=== PATIENT | female | born 1940 | race Caucasian/White ===

== ENCOUNTER → 2017-01-08 | Outpatient (CLI) | payer OTHER, BC ==
[~2017-01-08] MED LIST: ACET-24 PO; ASPEC325 PO; ATEN50TA8 PO; ATV1 PO; DIPH-437 PO; IBUP-1459 PO; LEVO50TA6 PO; LEVO75TA5 PO; NAPR1TAB9 PO; NCYSR50 PO; RXC5 PO; SIMV20TA2 PO
--- NOTE | 2017-01-08 12:10 | MAMMOGRAPHY REPORT ---
BILATERAL DIGITAL SCREENING MAMMOGRAM WITH CAD: 01/08/2017 TECHNIQUE: Current study was also evaluated with a Computer Aided Detection (CAD) system. Bilateral CC and MLO views were obtained. COMPARISON: Comparison is made to exams dated: 01/07/2016 mammogram, 01/03/2015 mammogram, 01/02/2014 m ammogram, 12/30/2012 mammogram, 12/11/2011 mammogram, and 12/09/2010 mammogram - [facility] nter. BREAST COMPOSITION: There are scattered areas of fibroglandular density in both breasts. FINDINGS: No suspicious masses, calcifications, or areas of architectural distortion are noted in ei ther breast. There has been no significant interval change compared to prior exams. Bilateral benig n-appearing calcifications are not significantly changed, including a small cluster of benign-appeari ng calcifications in the right upper outer quadrant which is stable dating back to at least the 2014 exam. IMPRESSION: ACR BI-RADS CATEGORY 2: BENIGN There is no mammographic evidence of malignancy. A 1 year screening mammogram is recommended. The pa tient will receive written notification of the results. Approximately 10% of breast cancers are not detected with mammography. A negative mammographic report should not delay biopsy if a clinically suggestive mass is present. Rhona Choudhury M.D. ah/:01/08/2017 10:53:01 [employer] System Administrator: Mitzi SALAS(Jayson)(M), [facility] letter sent: Normal 1/2 BI-RADS Code: ACR BI-RADS Category 2: Benign
== END | disposition home or self-care (01) ==
LOC: C.MAMM 10:29
PROVIDERS: ATTEND Family Medicine
DX: Z12.31 Encounter for screening mammogram for malignant neoplasm of breast (principal)

== ENCOUNTER 2017-03-23 06:30 | Inpatient (IN) | payer OTHER, BC ==
[2017-03-04 11:05] VITALS: BMI 40.0
--- NOTE | 2017-03-04 11:44 | PAT Medication Instructions ---
Service Date Mar 04, 2017. Current Home Medication List Atenolol (Tenormin), 50 MG PO HS Diphenhydramine-Acetaminophen (Tylenol Pm), 2 TAB PO HS PRN for PRN Ibuprofen (Motrin), 400 MG PO Q6H PRN for Pain Levothyroxine Sodium (Levothyroxine Sodium), 1 TAB PO QAM Simvastatin (Zocor), 20 MG PO HS Medication Instructions For Your Scheduled Surgery -Hold the following medication per surgeon's instructions: Ibuprofen (Motrin), 400 MG PO Q6H PRN for Pain - Take the following medications the morning of surgery with a sip of water: Levothyroxine Sodium (Levothyroxine Sodium), 1 TAB PO QAM - Take the following medications as scheduled the night before surgery: Simvastatin (Zocor), 20 MG PO HS Atenolol (Tenormin), 50 MG PO HS Diphenhydramine-Acetaminophen (Tylenol Pm), 2 TAB PO HS PRN for PRN If you have any questions please call us at [phone] or [phone] or [phone]
--- NOTE | 2017-03-04 12:31 | DIAGNOSTIC IMAGING REPORT ---
CHEST 2 VIEWS ROUTINE HISTORY: 76 years-old Female preadmission exam. No reported chest complaints. COMPARISON: Chest radiograph 03/22/2015 TECHNIQUE: Frontal and lateral views of the chest FINDINGS: Cardiac silhouette is mildly enlarged. There is no pneumothorax, pleural effusion, focal airspace consolidation or overt pulmonary edema. Degenerative changes involve the shoulders and spine. Partially imaged posterior nik and screw fixation of the lumbar spine is noted. IMPRESSION: Mild cardiomegaly without acute cardiopulmonary process. The above report was generated using voice recognition software. It may contain grammatical, syntax or spelling errors. Electronically signed by: Emanuel Frias M.D. 03/04/2017 12:30 PM Dictated Date/Time: 03/04/2017 12:29 PM
[2017-03-04 12:38] LABS: BASO % 0.6 %; BASO ABS # 0.04 K/uL (0-0.2); COMPLETE YES; EOS % 1.8 %; HEMATOCRIT 44.9 % (37-47); IG% 0.1 %; LYMPH % 41.2 %; LYMPH ABS # 2.76 K/uL (1.2-3.4); MEAN CELL VOLUME 99.8 fL (80-100); MEAN CORPUSCULAR HEMOGLOBIN 32.9 pg (25-34); MEAN PLATELET VOLUME 10.7 fL (7.4-10.4); MONO % 8.4 %; NEUT % 47.9 %; PLATELET COUNT 195 K/uL (130-400)
[2017-03-04 12:49] LABS: PARTIAL THROMBOPLASTIN RATIO 1.1; PROTHROMBIN TIME (PATIENT) 10.7 SECONDS (9.0-12.0)
[2017-03-04 14:02] LABS: BLOOD UREA NITROGEN 17 mg/dl (7-18); CREATININE 0.98 mg/dl (0.60-1.20); GLUCOSE 85 mg/dl (70-99)
[2017-03-04 14:03] LABS: BUN/CREATININE RATIO 16.8 (10-20); C-REACTIVE PROTEIN < 0.29 mg/dl (0-0.29); CARBON DIOXIDE 24 mmol/L (21-32); CHLORIDE 109 mmol/L (98-107); POTASSIUM 4.5 mmol/L (3.5-5.1); SODIUM 139 mmol/L (136-145)
--- NOTE | 2017-03-18 12:54 | HISTORY & PHYSICAL EXAMINATION ---
DATE OF ADMISSION: 03/23/2017 CHIEF COMPLAINT: Right knee pain. HISTORY OF PRESENT ILLNESS: The patient is a 76-year-old female, now about 6 years out from a left knee replacement, who presents for surgical treatment of her right knee. She had a long history of right knee pain and discomfort that has gotten worse over the past several years. She gets very temporary relief from the injections. She has actually resorted to going up and down steps one step at a time. She does get intermittent acute pains, which make it difficult for her to ambulate at all. Pain is global. It is increased with weightbearing. She would like to have a right knee replaced. PAST MEDICAL HISTORY: 1. Hypertension. 2. Elevated cholesterol. 3. Hypothyroidism. 4. Osteoarthritis. 5. Obesity with a BMI of 41. PAST SURGICAL HISTORY: Surgeries include: 1. Left knee replacement done on 05/19/2010. 2. Spinal stenosis surgery. 3. Tonsillectomy. 4. Hysterectomy. 5. Herniorrhaphy. 6. Carpal tunnel release. ALLERGIES: None. CURRENT MEDICINES: Include: 1. Atenolol 50 mg once a day. 2. Levothyroxine 75 mcg a day. 3. Zocor 20 mg. 4. Tylenol. SOCIAL HISTORY: A 76-year-old female patient from [place]. Does not smoke. FAMILY HISTORY: Noncontributory. REVIEW OF SYSTEMS: Negative for diabetes, neurologic problems, vascular bleed, or bleeding disorders. No chest pain or shortness of breath. No history of DVT or PE. PHYSICAL EXAMINATION: GENERAL: Reveals a healthy, pleasant middle-aged female. Looks to be in pretty good health. HEENT: Benign. NECK: Supple. No lymphadenopathy. LUNGS: Clear to auscultation. HEART: Regular rate and rhythm. ABDOMEN: Soft, nontender, and nondistended. EXTREMITIES: Grossly neurovascularly intact except as follows: Examination of the right knee reveals the patient walks with a slight bit of a limp. She has varus alignment to her knee. She does have a little bit of varus thrust with weightbearing. Range of motion is 5 degrees short of full extension to 110 degrees of flexion. Pretty stiff with flexion. No pain with hip motion. X-RAYS: X-rays of the right knee revealed advanced right knee DJD. She has complete loss of her medial joint space. She has subchondral sclerosis. She has got osteophytes particularly of the medial femoral condyle and medial tibial plateau. She has got some posterior osteophytes as well. ASSESSMENT: A 76-year-old female with 6 years out from left knee replacement with advanced right knee degenerative joint disease. She would like to have her right knee replaced. PLAN: We are going to take her to the operating room and do a right total knee replacement. The risks and benefits of this procedure were explained to the patient, including but not limited to DVT, PE, , infection, neurological injury, vascular injury, bleeding problem, pain, limited range of motion, stiffness, failure to relieve her symptoms, incomplete relief of symptoms, need for further surgery in the future, fracture, leg length inequality, nerve palsy, persistent pain, need for blood transfusion, etc. The patient understands and desires to proceed. Informed consent was obtained. We did talk to her about taking her atenolol the evening before surgery. She stopped all of her NSAIDs. She is planning to be discharged to home, using [facility].
[2017-03-23] VITALS (10 sets, daily range): BP systolic 122–177; BP diastolic 58–87; PULSE 50–60; TEMP 36.4–36.7; O2SAT 95–100; Ht 160 cm; Wt 104.6 kg
[~2017-03-23] VITALS: Ht 160 cm; Wt 104.6 kg
[~2017-03-23 06:30] MED LIST changes: -ACET-24 PO; +ACETAMINOPHEN 500 MG TAB PO SCH; -ASPEC325 PO; -ATV1 PO; +BUPIVACAINE 0.5 % 5 MG/1 ML PF 10ML VIAL ONE; +BUPIVACAINE LIPOSOME 266 MG, BUPIVACAINE/EPINEPHRINE INJ 50 ML, SODIUM CHLORIDE 0.9% PF... INFIL SCH; +CEFAZOLIN 2000 MG/60 ML D5W 60 ML IV SCH; +FAMOTIDINE 20 MG TAB PO SCH; +GABAPENTIN 300 MG CAP PO SCH; +LACTATED RINGER'S 1000ML 500 ML IV ONE; +LACTATED RINGER'S 1000ML IV SCH; -LEVO50TA6 PO; +METOCLOPRAMIDE HCL 10 MG TAB PO SCH; -NAPR1TAB9 PO; -NCYSR50 PO; +ROPIVACAINE 0.5% 5 MG/ML 30 ML VIAL ONE; -RXC5 PO; +SCOPOLAMINE 1.5 MG TDSY TD SCH; +TRANEXAMIC ACID INJ 1,000 MG in SODIUM CHLORIDE 0.9% 100ML 100 ML IV SCH
--- NOTE | 2017-03-23 06:49 | History & Physical Bridge Note ---
H&P Re-Evaluation Bridge Note: I have examined the patient, reviewed the History & Physical and in the interval since the performance of the History & Physical I have noted the following changes of clinical significance: No changes noted
[2017-03-23] MEDS ORDERED: NAPR1TAB9 PO (07:06)
[2017-03-23] MEDS ORDERED: FENTANYL CITRATE INJ 50 MCG/1 ML 2 ML VIAL ONE (07:50)
[2017-03-23] MEDS ORDERED: MIDAZOLAM HCL 1 MG/ML 2ML VIAL ONE ×3 (07:50→09:11)
[2017-03-23] MEDS ORDERED: BUPIVACAINE/EPINEPHRINE 0.25% 1:200,000 30 ML VIAL ONE (08:37)
[2017-03-23] MEDS ORDERED: SODIUM CHLORIDE 0.9% PF 50 ML VIAL ONE (08:37)
[2017-03-23] MEDS ORDERED: BUPIVACAINE LIPOSOME 1/3% 266 MG/20 ML VIAL INFIL ONE (08:37)
[2017-03-23] MEDS ORDERED: BACITRACIN 50000 UNIT VIAL ONE (08:37)
[2017-03-23] MEDS ORDERED: NALOXONE HCL INJ 1 MG in SODIUM CHLORIDE 0.9% 1000ML 1,000 ML IV PRN (09:24)
[2017-03-23] MEDS ORDERED: NALOXONE HCL INJ 0.08 MG in SYRINGE 1.8 ML IV PRN (09:24)
[2017-03-23] MEDS ORDERED: SODIUM CHLORIDE 0.9% 1000ML 1,000 ML IV PRN (09:24)
[2017-03-23] MEDS ORDERED: LACTATED RINGER'S 1000ML 500 ML IV PRN (09:24)
[2017-03-23] MEDS ORDERED: NO NARCOTICS OR SEDATIVES SCH (09:30)
[2017-03-23] MEDS ORDERED: NALOXONE HCL 0.4 MG/1 ML VIAL/CARP IV PRN (09:30)
[2017-03-23] MEDS ORDERED: DC INTRASPINAL MORPHINE SCH (09:30)
[2017-03-23] MEDS ORDERED: EpHEDrine SULFATE INJ 50 MG/ML AMP IV PRN (09:30)
[2017-03-23] MEDS ORDERED: NALBUPHINE HCL INJ 10 MG/ML AMP IV PRN (09:30)
[2017-03-23] MEDS ORDERED: DiphenhydrAMINE HCL 50 MG/ML VIAL IV PRN (09:30)
[2017-03-23] MEDS ORDERED: MoRPHine SULFATE PF 1 MG/ML 10 ML AMP/VIAL EPI PRN (09:30)
[2017-03-23] MEDS ORDERED: PROPOFOL IV EMULSION 10 MG/ML 20 ML VIAL IV ONE (09:37)
[2017-03-23] MEDS ORDERED: ONDANSETRON INJ 2 MG/ML 2 ML VIAL ONE (09:37)
[2017-03-23] MEDS ORDERED: DEXAMETHASONE SOD INJ 4 MG/ML VIAL ONE (09:38)
--- NOTE | 2017-03-23 10:39 | [facility] Post Operative Brief Note ---
Immediate Operative Summary Operative Date Mar 23, 2017. Pre-Operative Diagnosis Right Knee Advanced Degenerative Joint Disease Post-Operative Diagnosis Right Knee Advanced Degenerative Joint Disease Procedure(s) Performed Right Total Knee Arthroplasty Surgeon Dr. Mendoza Director Of Undergraduate Admissions Surgeon(s) SHELDON Thibodeaux Estimated Blood Loss 50 ml Findings Right Knee DJD Fluids (cc crystalloids) 1700 cc Specimens A. Right Knee Bone and Tissue Drains None Anesthesia Spinal Complication(s) None Disposition Recovery Room / PACU
[2017-03-23] MEDS ORDERED: ONDANSETRON INJ 2 MG/ML 2 ML VIAL IV PRN (10:45)
[2017-03-23] MEDS ORDERED: ALUMINUM/MAGNESIUM/SIMETH (MAALOX MAX) 30 ML UDC PO PRN (10:45)
[2017-03-23] MEDS ORDERED: HYDROmorphone HCL 2 MG TAB PO PRN (10:45)
[2017-03-23] MEDS ORDERED: MAGNESIUM HYDROXIDE SUSP 30 ML UDC PO PRN (10:45)
[2017-03-23] MEDS ORDERED: SILVER SULFADIAZINE 1% CR 50 GM JAR EXT PRN (10:45)
[2017-03-23] MEDS ORDERED: HYDROmorphone INJ 0.5 MG/0.5 ML SYR IV PRN (10:45)
[2017-03-23] MEDS ORDERED: ZOLPIDEM TARTRATE 5 MG TAB PO PRN (10:45)
[2017-03-23] MEDS ORDERED: METOCLOPRAMIDE HCL INJ 5 MG/ML 2 ML VIAL IV PRN (10:45)
[2017-03-23] MEDS ORDERED: BISACODYL 10 MG SUPP PR PRN (10:45)
--- NOTE | 2017-03-23 11:09 | DIAGNOSTIC IMAGING REPORT ---
RIGHT KNEE 1 OR 2 VIEWS ROUTINE CLINICAL HISTORY: Postop study COMPARISON: Outside radiograph dated 02/19/2017 DISCUSSION: There are postsurgical changes of a total right knee arthroplasty and patellar resurfacing. Overlying skin glen are evident. There is air within the soft tissues consistent with recent surgery. IMPRESSION: Postsurgical changes of a total right knee arthroplasty. Electronically signed by: Jarett Martinez M.D. 03/23/2017 11:08 AM Dictated Date/Time: 03/23/2017 11:07 AM
--- NOTE | 2017-03-23 11:09 | OPERATIVE REPORT ---
DATE OF OPERATION: 03/23/2017 PREOPERATIVE DIAGNOSIS: Right knee degenerative joint disease. POSTOPERATIVE DIAGNOSIS: Same. PROCEDURE PERFORMED: Right cemented posterior stabilized total knee arthroplasty. SURGEON: Dr. Ramos Mendoza. [employer] SUPERVISOR: Andrews Ruiz PA-C. COMPLICATIONS: None. ESTIMATED BLOOD LOSS: 50 mL. FLUID REPLACEMENT: 1700 mL crystalloid fluid replacement. ANESTHESIA: Spinal with adductor canal block. DRAINS: None. SPECIMENS: Right knee sent for pathology. TOURNIQUET TIME: 53 minutes at 300 mmHg. OPERATIVE INDICATIONS: The patient is a 76-year-old female now about 7 years out from a left knee replacement. Over the past several years she developed increased pain and discomfort in the right knee. She has been unresponsive to conservative care. She elected to proceed with right total knee arthroplasty. OPERATIVE FINDINGS: Operative findings revealed advanced right knee DJD. She did have extensive grade 4 changes in the medial femoral condyle and medial tibial plateau. Less severe grade 3 changes in the other 2 compartments. She had a varus deformity to her knee. Moderate size effusion. OPERATIVE IMPLANTS: Operative implants consisted of: 1. A Biomet Vanguard size 62.5 right posterior stabilized femoral component. 2. Biomet size 71 tibial tray. 3. A 10 mm posterior stabilized polyethylene insert. 4. A 31 x 8 all poly patella. OPERATIVE PROCEDURE: The patient taken to the operating room, identified and placed on the operating table in supine position. All contact areas were appropriately padded. IV antibiotics were provided by anesthesia team. A spinal anesthetic and adductor canal block had been provided in the holding area. Gaming catheter was placed in sterile fashion. A right thigh tourniquet was then placed and the right lower extremity was then prepped and draped in the usual sterile fashion. The right leg was elevated and exsanguinated with Esmarch and tourniquet was placed at 300 mmHg. An anterior approach to the right knee was then performed through a longitudinal incision centered over the patella. I did excise a very small benign skin lesion at her request. Sharp dissection was carried down through the subcutaneous tissues down to the level of the extensor mechanism. A medial parapatellar arthrotomy incision was made. Some subperiosteal dissection was carried out medially. The fat pad was resected from beneath the patellar tendon. The lateral patellofemoral ligament was released. The patella was everted, and the knee was flexed. The osteophytes were taken off the distal femur. The ACL and PCL were then released from the distal femur and the tibia subluxated anteriorly. The external tibial alignment jig was then placed in the anterior face of the tibia and adjusted 14 mm medially. Proximal tibial cut was made to remove about 2 mm of bone from the most deficient aspect of the medial tibial plateau. Tibia was sized to a size 71. Attention was then drawn to the femur. The distal femur was entered with a sharp drill. Intramedullary canal was suctioned. A right 5 degree valgus cutting guide was placed. Distal femoral cutting block was pinned in place. Distal femoral cut was made to take an additional 3 mm of bone off the distal femur. The femur was then sized to a size 62.5. We did downsize this slightly. The AP cutting block was pinned parallel to the epicondylar axis, which was 4 degrees of external rotation. The anterior cut, anterior chamfer, posterior cut, posterior chamfer cuts were made. Box cutting guide was placed and adjusted slightly lateral and the box cut was made. The knee was flexed. The remnants of the medial and lateral meniscus were excised. The osteophytes were taken off the posterior aspect of the femur. Trial femoral component was placed. Tibial tray was pinned in maximum external rotation and the drill and stem punch were used to create defect in proximal tibia for the tibial tray. The knee was then trialed and the 10 mm insert fit most appropriately. Attention was then drawn to the patella. The patella was cleaned of all soft tissues. Patella thickness measured 22 mm in thickness and was cut down to 14. It was sized to a size 31 patella. Lug holes were drilled for the 31 patella. Lateral osteophyte was removed. Patella button was placed. Knee was taken through range of motion, patella tracked nicely with no thumbs test. Attention was then drawn toward placement of the permanent components. All trial components were removed. A bone plug was placed in the distal femur to limit blood loss. A double batch of Palacos G cement was mixed. A right size 62.5 posterior stabilized femoral component, size 71 tibial tray, a 10 mm posterior stabilized polyethylene insert, and a 31 x 8 all poly patella were then cemented in place. Knee was brought out into full extension until cement hardened. A final cement check was then performed. The pericapsular tissues were injected with a total of 100 mL of a combination of 20 mL of Exparel, 30 mL of normal saline, 50 mL of 0.25% Marcaine with epinephrine. The patient did receive 1 gram of tranexamic acid. The tourniquet was then let down for a tourniquet time of 53 minutes. Hemostasis was assured with use of electrocautery. The wound was once again irrigated. The extensor mechanism was then closed with a combination of #1 PDS suture and #1 Vicryl suture in a [id number] fashion. Extensor mechanism was checked and found to be intact. Subcutaneous tissues were then closed with 2-0 Dexon suture in a buried interrupted fashion. Skin was closed skin glen. Leg was then cleaned and dried and a sterile dressing of Xeroform, 4 x 4, sterile cast padding and Keshav bandage were applied. The patient then transferred to the recovery room in stable condition. The patient tolerated the procedure with no complications. All needle and sponge counts were correct at the end of the operation. I attest to the content of the Intraoperative Record and any orders documented therein. Any exception s are noted below.
--- NOTE | 2017-03-23 11:24 | Anesthesiology Progress Note ---
Anesthesia Post Op Note Date & Time Mar 23, 2017 at 11:24 Vital Signs Pain Intensity: 0 Vital Signs Past 12 Hours Date Time Temp Pulse Resp B/P (MAP) Pulse Ox O2 Delivery O2 Flow Rate FiO2 03/23/17 11:20 36.4 54 16 110/53 98 Nasal Cannula 2 03/23/17 11:10 53 16 118/56 96 Oxymask 2 03/23/17 11:00 56 16 121/58 99 Oxymask 3 03/23/17 10:50 55 16 115/54 98 Oxymask 5 03/23/17 10:44 36.4 59 12 107/47 98 Oxymask 10 03/23/17 07:20 36.6 53 18 177/80 95 Room Air Notes Mental Status: alert / awake / arousable, participated in evaluation Pt Amnestic to Procedure: Yes Nausea / Vomiting: adequately controlled Pain: adequately controlled Airway Patency, RR, SpO2: stable & adequate BP & HR: stable & adequate Hydration State: stable & adequate Anesthetic Complications: no major complications apparent
[2017-03-23] MEDS: FERROUS GLUCONATE 324 MG TAB PO SCH ×2 (13:23→18:19)
[2017-03-23] MEDS: D5W AND 1/2NSS + 20MEQ KCL 1,000 ML IV SCH ×2 (13:23→21:00)
[2017-03-23] MEDS: ACETAMINOPHEN 500 MG TAB PO SCH ×2 (13:24→21:45)
--- NOTE | 2017-03-23 15:29 | PROGRESS NOTE ---
DATE: 03/23/2017 SUBJECTIVE: 76-year-old female postop from a right knee replacement. She is doing well. Not having any pain yet. No chest pain or shortness of breath. Not feeling dizzy or lightheaded. OBJECTIVE: VITAL SIGNS: Temperature 36.5. Vital signs stable. PHYSICAL EXAMINATION: GENERAL: Reveals a healthy pleasant elderly female. She is sitting up in bed and talking to her . She looks comfortable. LUNGS: Clear to auscultation. HEART: Has a regular rate and rhythm. ABDOMEN: Soft, nontender, nondistended. EXTREMITIES: Grossly neurologically intact except as follows: Examination of the right leg reveals the leg to be well aligned. Dressing is clean, dry and intact. She can dorsiflex and plantarflex her foot appropriately. She is neurologically intact. X-RAYS: X-rays of the right knee from recovery room were reviewed. It shows a right cemented posterior stabilized total knee arthroplasty. The components look to be in good position. No signs of problems. ASSESSMENT: 76-year-old female postop from a right knee replacement, doing well. Her pain is controlled. She is neurologically intact. PLAN: 1. DVT prophylaxis including thigh-high TEDs, SCDs, and aspirin twice a day. 2. PT/OT. Weight bear as tolerated. Right total knee protocol. 3. Pain control, doing well with current pain regimen. 4. IV antibiotics x24 hours. 5. Disposition: Plan to discharge to home with some home health once adequately recovered.
[2017-03-23] MEDS: CHECK SCOPOLAMINE PATCH PLACEMENT SCH ×2 (16:16→23:12)
[2017-03-23] MEDS: KETOROLAC TROMETHAMINE 15 MG/ML VIAL IV. SCH ×2 (16:17→21:45)
[2017-03-23] MEDS: CEFAZOLIN IV 2,000 MG in DEXTROSE 5% 50ML 50 ML IV SCH (16:57)
[2017-03-23] MEDS ORDERED: NURSING VERBAL MED ORDER ONE (17:15)
[2017-03-23] MEDS ORDERED: TRANEXAMIC ACID INJ 1,000 MG in SODIUM CHLORIDE 0.9% 100ML 100 ML IV ONE (18:00)
[2017-03-23] MEDS: DOCUSATE SODIUM 100 MG CAP PO SCH (21:00)
[2017-03-23] MEDS: SIMVASTATIN 20 MG TAB PO SCH (21:00)
[2017-03-23] MEDS: TAPENTADOL ER 50 MG TABCR PO SCH (21:00)
[2017-03-23] MEDS: SENNA 8.6 MG TAB PO SCH (21:01)
[2017-03-23] MEDS: ASPIRIN 325 MG ECTAB PO SCH (21:01)
[2017-03-23] MEDS: OXYCODONE HCL IR 5 MG TAB (IMMEDIATE RELEASE) PO PRN (23:16)
[2017-03-24] VITALS (8 sets, daily range): BP systolic 129–176; BP diastolic 64–85; PULSE 50–63; TEMP 36.6–37; O2SAT 93–96
[2017-03-24] MEDS: CEFAZOLIN IV 2,000 MG in DEXTROSE 5% 50ML 50 ML IV SCH (01:40)
[2017-03-24] MEDS: D5W AND 1/2NSS + 20MEQ KCL 1,000 ML IV SCH (04:30)
[2017-03-24] MEDS: KETOROLAC TROMETHAMINE 15 MG/ML VIAL IV. SCH ×4 (04:30→22:01)
[2017-03-24] MEDS: ACETAMINOPHEN 500 MG TAB PO SCH ×3 (05:39→22:00)
[2017-03-24] MEDS: LEVOTHYROXINE 75 MCG TAB PO SCH (05:39)
[2017-03-24 05:55] LABS: HEMATOCRIT 37.8 % (37-47); MEAN CELL VOLUME 100.8 fL (80-100); MEAN CORPUSCULAR HEMOGLOBIN 32.3 pg (25-34); MEAN PLATELET VOLUME 10.8 fL (7.4-10.4); PLATELET COUNT 168 K/uL (130-400); RED BLOOD COUNT 3.75 M/uL (4.2-5.4); WHITE BLOOD COUNT 10.13 K/uL (4.8-10.8)
[2017-03-24 06:26] LABS: BUN/CREATININE RATIO 14.4 (10-20); CALCIUM 7.9 mg/dl (8.5-10.1); CREATININE 1.1 mg/dl (0.60-1.20); POTASSIUM 4.6 mmol/L (3.5-5.1)
[2017-03-24] MEDS: CHECK SCOPOLAMINE PATCH PLACEMENT SCH ×3 (07:22→23:25)
[2017-03-24] MEDS: TAPENTADOL ER 50 MG TABCR PO SCH ×2 (08:43→22:00)
[2017-03-24] MEDS: DOCUSATE SODIUM 100 MG CAP PO SCH ×2 (08:43→22:00)
[2017-03-24] MEDS: MULTIVITAMIN TAB PO SCH (08:43)
[2017-03-24] MEDS: PANTOprazole SOD 40 MG TAB PO SCH (08:43)
[2017-03-24] MEDS: ASPIRIN 325 MG ECTAB PO SCH ×2 (08:43→22:00)
[2017-03-24] MEDS: FERROUS GLUCONATE 324 MG TAB PO SCH ×3 (08:43→18:06)
[2017-03-24] MEDS ORDERED: RXC5 PO (09:38)
[2017-03-24] MEDS ORDERED: NCYSR50 PO (09:38)
[2017-03-24] MEDS ORDERED: ACET-24 PO (09:38)
[2017-03-24] MEDS ORDERED: ASPEC325 PO (09:38)
--- NOTE | 2017-03-24 09:40 | Discharge Instructions ---
Discharge Instructions Date of Service Mar 24, 2017. Admission Reason for Admission: Right Knee Osteoarthritis Discharge Discharge Diagnosis / Problem: Right Knee REplacement Discharge Goals Goal(s): Decrease discomfort, Improve function, Increase independence, Improve disease control, Therapeutic intervention Activity Recommendations Activity Level: Assistance Required Therapies: Physical Therapy, Occupational Therapy Weightbearing Status: Right weightbearing . Additional Information Patient informed of condition: Yes Advance Directives: Yes DNR: No Level of Care: Acute Rehab Communicable Disease: No Prognosis: Improving Current Hospital Diet Patient's current hospital diet: Regular Diet Discharge Diet Recommended Diet: Regular Diet Procedures Procedures Performed: Right Total Knee Arthroplasty Pending Studies Studies pending at discharge: no Medical Emergencies . Who to Call and When: Medical Emergencies: If at any time you feel your situation is an emergency, please call 911 immediately. . Non-Emergent Contact Non-Emergency issues call your: Surgeon . . "Provider Documentation" section prepared by Ramos Mendoza. . Core Measure Problem Core Measures: None
--- NOTE | 2017-03-24 09:46 | PROGRESS NOTE ---
DATE: 03/24/2017 SUBJECTIVE: 76-year-old female postop day 1 from right knee replacement, doing pretty well. She describes just mostly soreness in the knee. No chest pain or shortness of breath. Not feeling dizzy or lightheaded. OBJECTIVE: VITAL SIGNS: Temperature 36.7. Vital signs stable. Mild hypertension. PHYSICAL EXAMINATION: GENERAL: Reveals a pleasant elderly female. She is sitting up at her bedside and looks pretty comfortable. LUNGS: Clear to auscultation. HEART: Regular rate and rhythm. ABDOMEN: Soft, nontender, nondistended. EXTREMITIES: Grossly neurovascularly intact except as follows. Examination of the right lower extremity reveals the dressing to be clean, dry and intact. She can dorsiflex and plantarflex her foot appropriately. She is neurologically intact. LABORATORY DATA: Hemoglobin at 12.1, hematocrit 37.8. Electrolytes are stable. ASSESSMENT: 76-year-old female postop day 1 from a right knee replacement. Pain has been pretty well controlled. She is neurologically intact. PLAN: 1. DVT prophylaxis including thigh-high TEDs, SCDs, and aspirin twice a day. 2. PT/OT. Weightbearing as tolerated. Right total knee protocol. 3. Pain control, doing well with current pain regimen. 4. Disposition: She is hoping to be discharged to [facility] for a brief rehab stay. Will get bilingual social worker working on that today.
--- NOTE | 2017-03-24 10:12 | Anesthesiology Progress Note ---
Anesthesia Post Op Note Date & Time Mar 24, 2017 at 10:11 Vital Signs Pain Intensity: 5.0 Vital Signs Past 12 Hours Date Time Temp Pulse Resp B/P (MAP) Pulse Ox O2 Delivery O2 Flow Rate FiO2 03/24/17 07:15 Room Air 03/24/17 07:10 36.7 50 16 153/77 (102) 96 Room Air 03/24/17 03:24 36.6 56 18 129/64 (85) 95 Room Air 03/23/17 23:20 Room Air 03/23/17 23:18 151/58 (89) 03/23/17 22:55 36.4 54 16 165/78 (107) 95 Room Air Notes Mental Status: alert / awake / arousable, participated in evaluation Pt Amnestic to Procedure: Yes Nausea / Vomiting: adequately controlled Pain: adequately controlled Airway Patency, RR, SpO2: stable & adequate BP & HR: stable & adequate Hydration State: stable & adequate Neuraxial Anesthesia: was administered, sensory block resolved Anesthetic Complications: no major complications apparent
[2017-03-24] MEDS: OXYCODONE HCL IR 5 MG TAB (IMMEDIATE RELEASE) PO PRN ×2 (11:00→15:59)
--- NOTE | 2017-03-24 17:45 | Discharge Instructions ---
Discharge Instructions Date of Service Mar 24, 2017. Admission Reason for Admission: Right Knee Osteoarthritis Discharge Discharge Diagnosis / Problem: Right Knee Replacement Discharge Goals Goal(s): Decrease discomfort, Improve function, Increase independence, Improve disease control, Therapeutic intervention Activity Recommendations Activity Limitations: per Instructions/Follow-up section Weightbearing Status: Right weightbearing . Instructions / Follow-Up Instructions / Follow-Up ACTIVITY RECOMMENDATIONS: Physical Therapy: * You will go to physical therapy three times each week for four to six weeks after your surgery in order to regain your knee range of motion and to retrain your knee to work properly. * It is just as important to make sure you are getting your knee perfectly straight as it is to regain your knee bend. * Taking a pain pill an hour before therapy can help you have a more productive and comfortable therapy session. Home Exercise: * You were shown a series of exercises (heel props, heel slides, etc.) in the hospital. Do these exercises three to four times each day including the exercises you were shown in physical therapy. Walking: * Get up and walk several times each day. For the first four weeks, try not to stand or walk for more than one hour at a time. If you do stand or walk for more than one hour, you will not hurt anything, but your knee and leg will likely swell. * As you feel comfortable, you may change from the walker or crutches to a cane and then to independent walking. MEDICATIONS: New Medicine: * You will likely be taking one or more of these medications: 1. Oxycodone - A quick and shorter-acting pain medication. Take one to two tablets every four to six hours to lessen your pain. 2. Aspirin - Thins your blood to lessen the chance of forming a blood clot. * The most common side effects of pain medicine and iron are nausea and constipation. If nausea or constipation is too much of a problem or if you have any questions about your new medicines or doses, call [facility] at . We will try to help you manage these issues. VERY IMPORTANT TO READ AND REVIEW" Pain: * The immediate post-operative period after knee replacement surgery is often quite painful. * You are given a prescription for pain medicine. You should take it, as directed, when you need it, especially before physical therapy and before going to bed. Pain that interferes with sleep is very common and can last several months. * You will likely need pain medicine for the first four to six weeks. It will not stop all of the pain. The pain will lessen and as you feel better, you may change to milder pain medicine such as Tylenol. * The most common side effects of pain medicine are nausea and constipation, so don't take more than you need. SPECIAL CARE INSTRUCTIONS: TEDs/Elastic Stockings: * The white elastic stockings help limit swelling and prevent blood clots from forming in your legs. The more you wear them, the more they work. * Wear them for six weeks after knee replacement surgery and four weeks after partial knee replacement. Prevention of Infection: * Take antibiotics one hour before any dental cleaning, dental work, urological procedure, gastrointestinal procedure or any invasive surgery in order to prevent your new joint from getting infected. * You may get the antibiotics from the doctor performing the procedure or you may call our office at before and we will call in a prescription to the pharmacy of your choice. Things to Watch For: * Drainage from the incision site that occurs more than one week after your surgery. * Severely increased knee/leg pain or swelling. * Increased redness at the incision site. * Fever above 102 degrees Fahrenheit. * Unusual chest pain or shortness of breath. * Unusual pain or burning with urination. Call [facility] at with any of the above problems or if you have any questions about your medicines or recovery. FOLLOW UP VISIT: Make an appointment to see your doctor for approximately two weeks after surgery for a progress check and staple removal by calling the office at . Current Hospital Diet Patient's current hospital diet: Regular Diet Discharge Diet Recommended Diet: Regular Diet Procedures Procedures Performed: Right Total Knee Arthroplasty Pending Studies Studies pending at discharge: no Medical Emergencies . Who to Call and When: Medical Emergencies: If at any time you feel your situation is an emergency, please call [phone] immediately. . Non-Emergent Contact Non-Emergency issues call your: Surgeon . "Provider Documentation" section prepared by Ramos Mendoza. . VTE Core Measure Inpt VTE Proph given/why not?: Other Anticoagulation, T.E.D. Stockings, SCD's
[2017-03-24] MEDS: SIMVASTATIN 20 MG TAB PO SCH (22:00)
[2017-03-24] MEDS: SENNA 8.6 MG TAB PO SCH (22:00)
[2017-03-25] MEDS: KETOROLAC TROMETHAMINE 15 MG/ML VIAL IV. SCH ×2 (04:04→10:04)
[2017-03-25] MEDS: ACETAMINOPHEN 500 MG TAB PO SCH ×3 (05:57→21:17)
[2017-03-25] MEDS: LEVOTHYROXINE 75 MCG TAB PO SCH ×2 (05:57→06:43)
--- NOTE | 2017-03-25 07:42 | PROGRESS NOTE ---
DATE: 03/25/2017 SUBJECTIVE: 76-year-old female postop day 2 from a right knee replacement. She is doing pretty well. Denies any chest pain or shortness of breath. Moderate knee pain. Not feeling dizzy or lightheaded. OBJECTIVE: VITAL SIGNS: Temperature 37.0. Vital signs stable. PHYSICAL EXAMINATION: GENERAL: Reveals pleasant elderly female. She is lying in bed, looks pretty comfortable. She is awake, alert and oriented. EXTREMITIES: Examination of the right leg reveals a little bit of bloody drainage on the dressing. Her calf is soft and supple. She can dorsiflex and plantarflex her foot appropriately. She is neurologically intact. ASSESSMENT: 76-year-old female postop day 2 from right knee replacement, doing pretty well. Pain is reasonably well controlled. She is really interested in looking into rehab if possible as her 's fairly elderly and may have difficulty assisting in her care. PLAN: 1. DVT prophylaxis including thigh-high TEDs, SCDs, and aspirin twice a day. 2. PT/OT. Weightbearing as tolerated. Right total knee protocol. 3. Pain control, doing pretty well with current pain regimen. 4. Disposition: Plan to discharge hopefully to [facility] for a brief rehab stay; if not, home with home health.
[2017-03-25 07:49] VITALS: BP 138/69; PULSE 52; TEMP 36.9; O2SAT 94
[2017-03-25] MEDS: DOCUSATE SODIUM 100 MG CAP PO SCH ×2 (08:47→21:17)
[2017-03-25] MEDS: MULTIVITAMIN TAB PO SCH (08:47)
[2017-03-25] MEDS: ASPIRIN 325 MG ECTAB PO SCH ×2 (08:47→21:18)
[2017-03-25] MEDS: PANTOprazole SOD 40 MG TAB PO SCH (08:47)
[2017-03-25] MEDS: FERROUS GLUCONATE 324 MG TAB PO SCH ×3 (08:48→18:26)
[2017-03-25] MEDS: TAPENTADOL ER 50 MG TABCR PO SCH ×2 (08:51→21:18)
[2017-03-25] MEDS: OXYCODONE HCL IR 5 MG TAB (IMMEDIATE RELEASE) PO PRN (08:52)
[2017-03-25 16:00] VITALS: BP 107/67; PULSE 56; TEMP 36.9; O2SAT 95
[2017-03-25] MEDS: SENNA 8.6 MG TAB PO SCH (21:17)
[2017-03-25] MEDS: SIMVASTATIN 20 MG TAB PO SCH (21:18)
[2017-03-25 21:21] VITALS: BP 155/81; PULSE 60
[2017-03-25 23:04] VITALS: BP 153/83; PULSE 56; TEMP 36.9; O2SAT 95
[2017-03-26] MEDS: OXYCODONE HCL IR 5 MG TAB (IMMEDIATE RELEASE) PO PRN ×3 (05:09→13:31)
[2017-03-26] MEDS: LEVOTHYROXINE 75 MCG TAB PO SCH (05:41)
[2017-03-26] MEDS: ACETAMINOPHEN 500 MG TAB PO SCH ×2 (05:41→13:27)
[2017-03-26 08:32] VITALS: BP 132/72; PULSE 49; TEMP 36.9; O2SAT 97
[2017-03-26] MEDS: FERROUS GLUCONATE 324 MG TAB PO SCH ×2 (09:20→13:27)
[2017-03-26] MEDS: PANTOprazole SOD 40 MG TAB PO SCH (09:21)
[2017-03-26] MEDS: MULTIVITAMIN TAB PO SCH (09:21)
[2017-03-26] MEDS: DOCUSATE SODIUM 100 MG CAP PO SCH (09:21)
[2017-03-26] MEDS: ASPIRIN 325 MG ECTAB PO SCH (09:21)
[2017-03-26] MEDS: TAPENTADOL ER 50 MG TABCR PO SCH (09:28)
--- NOTE | 2017-03-26 13:43 | PROGRESS NOTE ---
DATE: 03/26/2017 SUBJECTIVE: A 76-year-old female postop day #3 from right knee replacement. She is doing pretty well. Pain is controlled. She is hoping to go to [facility] today. No chest pain or shortness of breath. Not feeling dizzy or lightheaded. OBJECTIVE: VITAL SIGNS: Temperature 36.9. Vital signs stable. GENERAL: Physical examination reveals a healthy pleasant elderly female, sitting up in bed and talking to her . Looks comfortable. EXTREMITIES: Examination of the right leg reveals the wound to be clean, dry and intact. Dressing is clean, dry and intact. Calf is soft and supple. She is neurologically intact. ASSESSMENT: A 76-year-old female postop day #3 from right knee replacement, doing well. Pain is controlled. PLAN: 1. DVT prophylaxis including thigh-high TEDs, SCDs, and aspirin twice a day. 2. PT and OT. Weightbear as tolerated. Right total knee protocol. 3. Pain control, doing well with current pain regimen. 4. Disposition: Plan to discharge to [facility] later today if accepted.
[2017-03-26 13:50] VITALS: BP 132/72; PULSE 49; TEMP 36.9; O2SAT 97
== END 2017-03-26 14:20 | DRG 470 ==
LOC: C.ACU 06:30 → C.3E 07:00 → ENRESERV 11:15
PROVIDERS: ADMIT Orthopaedic Surgery Sports Medicine; ATTEND Orthopaedic Surgery Sports Medicine
PROC: 0SRC0J9 Replacement of Right Knee Joint with Synthetic Substitute, Cemented, Open Approach (ICD-10-PCS; principal; 2017-03-23 09:00)
DX: M17.11 Unilateral primary osteoarthritis, right knee (principal); Z68.41 Body mass index [BMI] 40.0-44.9, adult; I10 Essential (primary) hypertension; E03.9 Hypothyroidism, unspecified; E66.9 Obesity, unspecified; Z96.652 Presence of left artificial knee joint; Z90.710 Acquired absence of both cervix and uterus

== ENCOUNTER → 2018-02-04 | Outpatient (CLI) | payer OTHER, BC ==
[~2018-02-04] MED LIST changes: +ACET-24 PO; -ACETAMINOPHEN 500 MG TAB PO SCH; +ASPEC325 PO; -BUPIVACAINE 0.5 % 5 MG/1 ML PF 10ML VIAL ONE; -BUPIVACAINE LIPOSOME 266 MG, BUPIVACAINE/EPINEPHRINE INJ 50 ML, SODIUM CHLORIDE 0.9% PF... INFIL SCH; -CEFAZOLIN 2000 MG/60 ML D5W 60 ML IV SCH; -FAMOTIDINE 20 MG TAB PO SCH; -GABAPENTIN 300 MG CAP PO SCH; -LACTATED RINGER'S 1000ML 500 ML IV ONE; -LACTATED RINGER'S 1000ML IV SCH; -METOCLOPRAMIDE HCL 10 MG TAB PO SCH; +NAPR1TAB9 PO; +NCYSR50 PO; -ROPIVACAINE 0.5% 5 MG/ML 30 ML VIAL ONE; +RXC5 PO; -SCOPOLAMINE 1.5 MG TDSY TD SCH; -TRANEXAMIC ACID INJ 1,000 MG in SODIUM CHLORIDE 0.9% 100ML 100 ML IV SCH
--- NOTE | 2018-02-04 15:41 | MAMMOGRAPHY REPORT ---
UNILATERAL RIGHT DIGITAL DIAGNOSTIC MAMMOGRAM TOMOSYNTHESIS AND TARGETED RIGHT ULTRASOUND: 02/04/2018 CLINICAL HISTORY: Callback from screening mammogram for right breast asymmetry and right breast calci fications. The patient has a family history of breast cancer including her daughter. TECHNIQUE: The study was acquired using full field digital technology and interpreted from soft copy. Breast tomosynthesis in addition to standard 2D mammography was performed. Spot magnification right CC and MLO views and spot compression right CC and MLO tomosynthesis images were obtained. COMPARISON: Comparison is made to exams dated: 01/14/2018 mammogram, 01/08/2017 mammogram, 01/07/2016 ma mmogram, 01/03/2015 mammogram, 01/02/2014 mammogram, and 12/11/2011 mammogram - [facility]. BREAST COMPOSITION: There are scattered areas of fibroglandular density in right breast. FINDINGS: Spot magnification views demonstrate a small 4 mm cluster of amorphous, slightly heterogeneous calcif ications within the right lateral breast at approximately 9:00. The calcifications are likely not si gnificantly changed compared to the 2016 exam and possibly the 2015 exam. Some calcifications were s een in this region on some of the older prior exams including the 2014 exam although it is difficult to make an accurate comparison due to technical differences. My recommendation of breast stereotacti c biopsy was discussed with the patient to exclude the possibility of atypia/malignancy, however, the patient would prefer to undergo imaging follow-up which is reasonable given the probable stability f or 2 years. The previously described nodular asymmetry in the right upper outer quadrant is less prominent on the additional spot compression views, without a suspicious cluster of calcifications noted in the regio n. Targeted ultrasound was performed of the right upper outer quadrant of the region of the mammogra phic asymmetry. No suspicious masses or other suspicious sonographic abnormalities are evident. No clear correlate for the mammographic asymmetry is seen. IMPRESSION: ACR-BI-RADS CATEGORY 3: PROBABLY BENIGN, ULTRASOUND ACR-BI-RADS CATEGORY 3: PROBABLY CLAUDIA GN 1. Small 5 mm cluster of calcifications in the right 9:00 breast is likely not significantly changed compared to the 2017 and 2015 exam and is probably benign. Recommend follow-up diagnostic tomosynth esis mammograms of the right breast in 6 months to confirm stability on spot magnification views. 2. Nodular asymmetry in the right upper outer quadrant is less prominent on the additional images, w ithout corresponding suspicious sonographic abnormality evident. Findings are benign and follow-up d iagnostic tomosynthesis mammograms and possible targeted ultrasound of the right breast is recommende d in 6 months to confirm stability. A follow-up mammogram and and possible targeted ultrasound in 6 months of the right breast is recomme nded to demonstrate stability.(08/06/2018) The patient has been verbally notified of the results. Some breast cancers are not detected with mammography. A negative mammographic report should not ryan y biopsy if a clinically suggestive mass is present. Rhona Choudhury M.D. ah/:02/04/2018 12:10:53 Executive Team Leader: Mitzi Mar, [facility]; Rhona Choudhury MD, [facility] letter sent: Follow Up Recommended 3 OVERALL STUDY BIRADS: 3 Probably benign
== END | disposition home or self-care (01) ==
LOC: C.MAMM 10:59
PROVIDERS: ATTEND Family Medicine
DX: R92.1 Mammographic calcification found on diagnostic imaging of breast (principal); N64.89 Other specified disorders of breast

== ENCOUNTER 2025-01-30 05:11 | Inpatient (IN) ==
--- NOTE | 2025-01-09 14:39 | PAT Medication Instructions ---
Medication Instructions Date of Service January 09, 2025 Home Medications Medication Instructions Recorded amoxicillin 500 mg capsule 2,000 mg (4 x 500 mg) PO ONCE #4 08/15/24 [facility] Medication List: amoxicillin 500 mg capsule 2,000 mg (4 x 500 mg) PO ONCE acetaminophen 500 mg tablet 500 mg PO Q6H PRN prn carboxymethylcellulose sodium 1 % eye liquid gel drops 2 drp ophthalmic (eye) BID PRN prn cholecalciferol (vitamin D3) 125 mcg (5,000 unit) tablet (Vitamin D3) 125 mcg PO QAM clobetasol 0.05 % topical cream 1 applic topical DAILY PRN prn cyanocobalamin (vitamin B-12) 1,000 mcg tablet (Vitamin B-12) 1,000 mcg PO DAILY ibuprofen 200 mg tablet 200 mg PO Q6H PRN prn levothyroxine 75 mcg tablet 75 mcg PO QAM magnesium oxide 400 mg PO QAM polyethylene glycol 3350 17 gram/dose oral powder (Miralax) 17 g PO DAILY PRN prn MEDICATION INSTRUCTIONS: Continue as directed amoxicillin 500 mg capsule 2,000 mg (4 x 500 mg) PO ONCE clobetasol 0.05 % topical cream 1 applic topical DAILY PRN prn carboxymethylcellulose sodium 1 % eye liquid gel drops 2 drp ophthalmic (eye) BID PRN prn ASK your surgeon for instructions ibuprofen 200 mg tablet 200 mg PO Q6H PRN prn DO NOT take the morning of surgery cholecalciferol (vitamin D3) 125 mcg (5,000 unit) tablet (Vitamin D3) 125 mcg PO QAM cyanocobalamin (vitamin B-12) 1,000 mcg tablet (Vitamin B-12) 1,000 mcg PO DAILY magnesium oxide 400 mg PO QAM polyethylene glycol 3350 17 gram/dose oral powder (Miralax) 17 g PO DAILY PRN prn Take morning of surgery With a small sip of water, OTHERWISE NOTHING TO EAT OR DRINK AFTER MIDNIGHT: acetaminophen 500 mg tablet 500 mg PO Q6H PRN prn levothyroxine 75 mcg tablet 75 mcg PO QAM Take evening before surgery acetaminophen 500 mg tablet 500 mg PO Q6H PRN prn Other Notes If you have any questions please call us at [phone] or [phone] or [phone] or [phone]
--- NOTE | 2025-01-17 13:37 | Anesthesiology Consultation ---
Date of Service January 17, 2025 Assessment & Plan (1) Encounter for pre-operative examination: Chart Review Chart Review: Acceptable Risk for Surgery and Patient seen in Pre Admission Testing - Patient is NOT an ideal OPJ candidate (currently 23 hour obs) Per PAT appt on 01/17/25, no recent illness/disease exposures, illness related symptoms, or recent illness/disease positive tests. Will leave to surgeon's discretion if preop Covid testing needed Right TKA 03/23/17= Done under SAB at L2-3 Teaching & Discussion Pre-Anesthesia Teaching/Discussion Notes: Instructed NPO after midnight before surgery,except medications with 15 cc of water. Medication instructions provided according to the [facility] guidelines. History Surgery Operation Date: 01/30/25 10:40 Proposed Procedures p Left Total Hip Arthroplasty - Ramos Mendoza MD Height/Weight Height: 5 ft 1 in Weight: 87.6 kg Allergies Allergy/AdvReac Type Severity Reaction Status Date / Time codeine AdvReac Mild NAUSEA Verified 01/04/25 08:40 Medications Home Medications Medication Instructions Recorded Confirmed Last Taken amoxicillin 500 mg capsule 2,000 mg (4 x 500 mg) PO ONCE #4 08/15/24 01/04/25 Unknown caps acetaminophen 500 mg tablet 500 mg PO Q6H PRN prn 01/04/25 01/04/25 Unknown carboxymethylcellulose sodium 1 % 2 drp ophthalmic (eye) BID PRN prn 01/04/25 01/04/25 Unknown eye liquid gel drops cholecalciferol (vitamin D3) 125 125 mcg PO QAM 01/04/25 01/04/25 Unknown mcg (5,000 unit) tablet (Vitamin D3) clobetasol 0.05 % topical cream 1 applic topical DAILY PRN prn 01/04/25 01/04/25 Unknown cyanocobalamin (vitamin B-12) 1,000 mcg PO DAILY 01/04/25 01/04/25 Unknown 1,000 mcg tablet (Vitamin B-12) ibuprofen 200 mg tablet 200 mg PO Q6H PRN prn 01/04/25 01/04/25 Unknown levothyroxine 75 mcg tablet 75 mcg PO QAM 01/04/25 01/04/25 Unknown magnesium oxide 400 mg PO QAM 01/04/25 01/04/25 Unknown polyethylene glycol 3350 17 17 g PO DAILY PRN prn 01/04/25 01/04/25 Unknown gram/dose oral powder (Miralax) Past Medical History Medical History History of anesthesia reaction awareness during knee replacement Hypothyroidism Incontinence of urine Lumbar spinal stenosis Exercise / Class Metabolic Activity III < 4 Walking/Shop/Light housework (7 stairs- no chest pain or SOB ) Past Surgical History Surgical History History of back surgery hardware present History of bilateral knee arthroplasty History of carpal tunnel release bilateral History of colonoscopy History of hysterectomy Past Anesthesia History No Hx of Anesthesia Complications (with exception to awareness with both TKAs ) and No Family Hx of Anesthesia Complications History of PONV No Hx of PONV and No Hx of Motion Sickness Social History Smoking Status: Never smoker Do You Dip or Chew Tobacco: No Hx Alcohol Use: Yes alcohol intake frequency: holidays/special occasions only Hx Substance Use: No substance use type: does not use Review of Systems Patient denies chest pain, shortness of breath, dyspnea on exertion, reflux, cough, wheezing, palpitations. No hx of seizures, stroke, IN, apnea/snoring. No hx of blood clots or blood transfusions Physical Exam Vital Signs VITALS BP 134/81 P 56 TEMP 97.7 SP02 95% RESP 16 Constitutional no acute distress ENMT Mouth: no TMJ clicking Thyromental Distance: > or= 3.5 Finger Breadths (3.5) Mallampati Class: III Neck + limited neck extension (significant) Respiratory normal respiratory effort; no respiratory distress Auscultation: lungs clear to auscultation bilaterally; no wheezes Cardiovascular Rate/Rhythm: regular rate and regular rhythm Heart Sounds: no murmur Vessels: no carotid bruit Extra beats noted Musculoskeletal Spine: no pain with cervical ROM Extremities: extremities normal to inspection Psychiatric Orientation: alert Lab Results Anesthesia Preop Results Results Anesthesia Widget: WBC 6.96 K/ul (4.8-10.8) 01/17/25 Hgb 15.0 g/dl (12.0-16.0) 01/17/25 Hct 46.6 % (37.0-47.0) 01/17/25 Plt 220 K/uL (130-400) 01/17/25 Na 140 mmol/L (136-145) 01/17/25 K 4.8 mmol/L (3.5-5.1) 01/17/25 Cl 106 mmol/L (98-107) 01/17/25 CO2 29 mmol/L (21-32) 01/17/25 BUN 25 mg/dl (6-23) H 01/17/25 Creat 1.18 mg/dl (0.6-1.2) 01/17/25 Glucose Level 90 mg/dl (70-99(Fasting)) 01/17/25 PT 11.2 Seconds (9.0-12.0) 01/17/25 PTT 28 Seconds (21-31) 01/17/25 INR 1.0 (0.9-1.1) 01/17/25 Blood Type A Positive 01/17/25 Antibody Screen NEGATIVE 01/17/25 Testing Laboratory Results 12/29/24= TSH: 1.76 Electrocardiogram Date: 01/17/25 SB with sinus arrhythmia with occ PVCs at 56bpm 1st degree AV block Left axis deviation When compared to EKG from March 04, 2017- PVCs are now present, QRS shifted left per cardio Chest X-Ray Date: 01/17/25 FINDINGS: PA and lateral chest radiographs are compared to study dated 04/18/2010. The heart is mildly enlarged. The pulmonary vasculature is noncontrasted. Chronic interstitial thickening is previous. The lungs and pleural spaces are clear. There is no pneumothorax. The skeletal structures are osteopenic. The bony thorax appears intact. Degenerative change is seen in the thoracic spine. Fusion hardware is seen in the lumbar spine. IMPRESSION: Mild cardiomegaly with no active disease in the chest.
--- NOTE | 2025-01-22 17:27 | History & Physical Report ---
Date of Service January 22, 2025 Assessment & Plan (1) Arthritis of left hip: 84-year-old female with history of bilateral knee replaced in the past as well as a back fusion with progressive left leg pain and discomfort consistent with advanced hip arthritis. This has progressed markedly over the past year. She would like to have her hip fixed. Plan: We are going to take her to the operating room for a left total hip replacement. The risks and benefits procedure were explained. Informed consent was obtained. Due to her back fusion she is at increased risk of instability and will maximize her stability. We may use a dual mobility implant. She may need a brief rehab stay. She did go to rehab after her spine surgery. Will use aspirin for DVT prophylaxis. She will follow back up in clinic 2 weeks postop. (2) History of bilateral knee replacement: (3) Lumbar stenosis with neurogenic claudication: (4) Spinal stenosis: History of Present Illness Chief Complaint: . Persistent and progressive left hip pain and discomfort and ambulatory difficulty. Primary Care Provider: Grayson Marte MD . Patient is an 84-year-old female well-known to me from my previous knee replacements in the past. Over the past years she has developed increased pain discomfort in the left hip and leg and thigh area to the point where she is having trouble getting around. She has had back problems and had back surgery Dr. By Dr. Mead in the past. They x-rayed her hips and saw that she had bad hip arthritis. They told her that she should have hip surgery before any further back surgery. She comes in specifically looking to have her hip fixed. She is have to use a walker to get around due to the discomfort. Allergies Allergy/AdvReac Type Severity Reaction Status Date / Time codeine AdvReac Mild NAUSEA Verified 01/04/25 08:40 Home Medications Medication Instructions Recorded Confirmed Type amoxicillin 500 mg capsule 2,000 mg (4 x 500 mg) PO ONCE #4 08/15/24 01/04/25 Rx caps acetaminophen 500 mg tablet 500 mg PO Q6H PRN prn 01/04/25 01/04/25 History carboxymethylcellulose sodium 1 % 2 drp ophthalmic (eye) BID PRN prn 01/04/25 01/04/25 History eye liquid gel drops cholecalciferol (vitamin D3) 125 125 mcg PO QAM 01/04/25 01/04/25 History mcg (5,000 unit) tablet (Vitamin D3) clobetasol 0.05 % topical cream 1 applic topical DAILY PRN prn 01/04/25 01/04/25 History cyanocobalamin (vitamin B-12) 1,000 mcg PO DAILY 01/04/25 01/04/25 History 1,000 mcg tablet (Vitamin B-12) ibuprofen 200 mg tablet 200 mg PO Q6H PRN prn 01/04/25 01/04/25 History levothyroxine 75 mcg tablet 75 mcg PO QAM 01/04/25 01/04/25 History magnesium oxide 400 mg PO QAM 01/04/25 01/04/25 History polyethylene glycol 3350 17 17 g PO DAILY PRN prn 01/04/25 01/04/25 History gram/dose oral powder (Miralax) Past Med/Surg History Problem List Encounter for pre-operative examination Thyroid disease Arthritis of left hip Left knee pain History of bilateral knee replacement Vertigo (Acute) Lumbar stenosis with neurogenic claudication (Acute) Spinal stenosis (Chronic) History of colonic polyps Medical History Incontinence of urine History of anesthesia reaction awareness during knee replacement Lumbar spinal stenosis Hypothyroidism Surgical History History of colonoscopy History of bilateral knee arthroplasty History of hysterectomy History of back surgery hardware present History of carpal tunnel release bilateral Social History Smoking Status: Never smoker Second Hand Exposure: No; Do You Dip or Chew Tobacco: No; Hx Alcohol Use: Yes Hx Substance Use: No Preferred Language: 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 Physical Exam . Physical examination reveals a pleasant elderly female. Looks be in reasonably good health. Examination left hip reveal patient walks with a wheeled walker. She walks on slow but with a reasonable gait pattern. Leg carline gths appear clinically pretty equal. She is got a well-healed knee incision on the left knee. There is no swelling of the knee. She does have pain with any type of hip motion. Internal rotation in neutral. Negative straight leg raise. She is neurologically intact. Constitutional WD/WN, vitals as above Respiratory normal respiratory effort, lungs clear to auscultation Cardiovascular RRR, no murmur, no edema Gastrointestinal (Abdomen) normal bowel sounds, soft, nontender, no hepatosplenomegaly Results & Data Results & Data Laboratory Results . Diagnostic Findings . X-ray of the left hip were reviewed. She has advanced left hip arthritis please get complete loss of the superior joint space. She is got a little bit of flattening of the femoral head and cystic changes on both sides of the joint. She does have evidence of previous spine surgery above with a fusion. PG Care Time/CCT Total # of Minutes Spent Total Time Spent with Patient: Total time spent is greater than 50% in coordination of care (as documented) at patient's floor/unit and/or counseling patient: Coding Level of Care Code None Diagnoses Arthritis of left hip M16.12 History of bilateral knee replacement Z96.653 Lumbar stenosis with neurogenic claudication M48.062 Spinal stenosis M48.00
[2025-01-30] MEDS: LR 500ML BOLUS, THEN 15ML/HR IV SCH (05:55)
[2025-01-30] MEDS: METOCLOPRAMIDE HCL 10 MG TABLET PO SCH (06:20)
[2025-01-30] MEDS: CeleBREX 200 MG CAP PO SCH (06:20)
[2025-01-30] MEDS: FAMOTIDINE 20 MG TAB PO SCH (06:20)
[2025-01-30] MEDS: ACETAMINOPHEN 500 MG TAB PO SCH ×2 (06:20→11:39)
[2025-01-30] MEDS: LR 60ML/HR IV SCH (06:20)
[2025-01-30] MEDS ORDERED: MIDAZOLAM HCL 1 MG/ML 2ML VIAL ONE (06:24)
[2025-01-30] MEDS ORDERED: LIDOCAINE 2% 2 ML VIAL/AMP(20MG/ML) INFIL ONE (06:26)
[2025-01-30] MEDS ORDERED: PROPOFOL IV EMULSION 10 MG/ML 100 ML VIAL IV ONE (06:29)
[2025-01-30] MEDS ORDERED: BUPIVACAINE 0.5 % 5 MG/1 ML PF 10ML VIAL ONE (06:31)
[2025-01-30] MEDS: dexAMETHasone**PF** 10 MG/ML VIAL IV ONE (06:37)
--- NOTE | 2025-01-30 06:40 | History & Physical Bridge Note ---
Date of Service January 30, 2025 History & Physical Bridge Note I have examined the patient, reviewed the History & Physical and in the interval since the performance of the History & Physical I have noted the following changes of clinical significance: no changes noted
[2025-01-30] MEDS ORDERED: ATROPINE SULFATE 0.1 MG/ML 10ML SYR IV PRN (06:41)
[2025-01-30] MEDS ORDERED: ONDANSETRON INJ 2 MG/ML 2 ML VIAL IV PRN ×2 (06:41→10:19)
[2025-01-30] MEDS: TRANEXAMIC ACID 1,000 MG **IV Pre-op IV SCH (06:43)
[2025-01-30] MEDS ORDERED: GLYCOPYRROLATE 0.2 MG/ML VIAL ONE (07:31)
[2025-01-30] MEDS ORDERED: LABETALOL HCL IV 5 MG/ML 20ML IV ONE (07:45)
[2025-01-30] MEDS: BUPIVACAINE/EPINEPHRINE 0.5% MPF 1:200,000 30 ML VIAL ONE (07:47)
[2025-01-30] MEDS ORDERED: ePHEDrine sulfate 50 MG/5 ML SYR ONE (08:11)
--- NOTE | 2025-01-30 08:49 | Operative Report ---
PG Post Operative Report Pre & Post Diagnosis Operation Date: 01/30/25 07:00 Pre-Op Diagnosis: Osteoarthritis Hip, Left Post-Op Diagnosis: Osteoarthritis Hip, Left I identified the patient and participated in the time-out.: Yes Procedure Operation Date: 01/30/25 07:00 Actual Procedures p Left Total Hip Arthroplasty, Uncemented(Left) - Ramos Mendoza MD Surgeon Ramos Mendoza MD Associate Professor Of Biology Stanislaw Sullivan PA-C Estimated Blood Loss 100 Findings Consistent with Post-Op Diagnosis Specimens Left femoral head sent for pathology. Anesthesia Type Spinal MAC Complications none Disposition Accompanied Patient To Recovery: No Indications The patient is an 84-year-old female who said a year history of increasing left hip pain discomfort is become more unbearable. She has history of spine surgery in the past. She underwent extensive evaluation was felt her most severe source of limited ambulatory function was related to her left hip arthritis. She failed conservative measures. She was desiring a left total hip arthroplasty. Description of Procedure Operative implants consists of: 1 Biomet G7 size 52 mm acetabular shell. 2. 6.5 cancellous acetabular screws 1 of 35 mm in length with 25 mm length. 3. A 52 mm outer diameter and a 42 mm inner diameter metal mobile-bearing liner. 4. DePuy Karaya size eleven 125 degree angle short neck femoral stem. 5. +5/28 mm ceramic articular ball. 6. 42 mm mobile-bearing polyethylene liner. The patient was taken to the op room, identified, placed on the operating table in the supine position. All conductors were appropriately padded. IV antibiotics fibra anesthesia team. Spinal anesthetic and been implemented in the holding area. Gaming catheter was placed in sterile fashion. The patient was then placed in the right lateral decubitus position. An axillary roll was placed. Distal Birkett position was used for positioning. The left hip and leg were then prepped and draped in usual sterile fashion. A posterolateral approach to the left hip was then performed through a curvilinear incision centered over the greater trochanter. Sharp dissection was carried through subcutaneous tissue down to the IT band gluteal fascia. The IT band gluteal fascia incised longitudinally in line with skin incision. The underlying greater bursa was excised. The piriformis and external rotators along with the posterior joint capsule were then released in the posterior aspect the hip as a single layer. Hip was internally rotated and dislocated. A femoral neck osteotomy cut was made with Final Cut about 12 mm above the lesser trochanter. Femoral head was removed and sent for pathology. The femur was retracted anteriorly. Attention drawn the acetabulum. The acetabular labrum was excised. The Pulvinal fat was excised. Sequential reaming the acetabulum was then performed again with size 43 and progressing up to 51. We reamed a little bit with a 52 reamer and then placed a 52 mm Biomet G7 acetabular shell in about 4 degrees lateral opening and 20 degrees of anteversion. It was fixed with two 6.5 screws. Trial liner was placed. Attention drawn the femur. The proximal femur was entered with a cookie cutter followed by canal finder. I then broached begin with size 8 and progressed up to 11. Excellent fit 11. We calcar reamer was used to move the calcar. Trialed the hip. With a standard neck the soft tissue tension was just too extreme. We again we therefore used a short neck implant. Was a +5 articular ball to provide full stability and appropriate leg lengths and soft tissue tension. He was fully stable. We elected to place a dual mobility liner due to her history of spine surgery in the past and the potential for instability. A dual mobility liner was placed. A size 11 short neck 125 degree angle femoral stem was placed. A +5/28 mm ceramic articular ball was placed inside of a dual mobility liner. The hip was located once again found to be stable. Attention jointer closing. The wound is extensively irrigated. Injected locally with 60 cc of half percent Marcaine with epinephrine. The posterior capsule and external rotators then repaired through drill holes in the posterior trochanter with #2 Tycron suture. The IT band gluteal fascia then closed in 1 PDS suture running fashion the subcutaneous tissue then closed with 2 layers of the deep layer #2 Vicryl suture and subcutaneous tissues with 2-0 Dexon suture in a buried interrupted fashion. Skin was then closed with skin glen. The leg was then cleaned and dried. A Prevena VAC dressing was applied. The patient was then transferred to the recovery room in stable condition. Patient tolerated procedure well and there were no complications. Stanislaw Sullivan, my physician sales assistant, was present for the entire procedure. His assistance was required for proper patient positioning, prepping and draping, surgical exposure, retraction, perform the technical details of the operation, placement of the implants, closure of the incision site, and placement of postoperative sterile bandage/Prevena VAC dressing. I attest to the content of the Intraoperative Record and any orders documented therein. Any exceptions are noted below.
--- NOTE | 2025-01-30 09:19 | XRay Report ---
XR hip 1V LT w pelvis CLINICAL HISTORY: IN PACU - Post Surgical COMPARISON: None FINDINGS: Left hip prosthesis shows no hardware complication. There is expected soft tissue gas. Ski n glen are present. IMPRESSION: Unremarkable postoperative exam. ACT 112: Negative or not required by law. Electronically signed by: Rodo Matias M.D. 01/30/2025 9:17 AM
--- NOTE | 2025-01-30 09:36 | Anesthesiology Progress Note ---
Date of Service January 30, 2025 Anesthesia Post Procedure Vital Signs Vital Signs: Temp Pulse Pulse Resp BP BP Pulse Ox 01/30/25 09:25 54 L 17 136/59 L 94 01/30/25 09:15 55 L 18 133/56 L 95 01/30/25 09:05 55 L 17 129/56 L 95 01/30/25 08:55 60 18 132/68 100 01/30/25 08:45 57 L 21 128/63 100 01/30/25 08:35 36.0 C L 54 L 18 123/74 97 01/30/25 05:50 36.6 C 65 20 188/97 H 97 O2 Del Method O2 Flow Rate 01/30/25 09:25 Room Air 01/30/25 09:15 Room Air 01/30/25 09:05 Room Air 01/30/25 08:55 Oxymask 8 01/30/25 08:45 Oxymask 8 01/30/25 08:35 Oxymask 8 01/30/25 05:50 Room Air Pain Intensity Left Hip: Pain Intensity: 2 Transfer of Care Handoff Completed per policy Notes Mental Status: alert / awake / arousable Patient Amnestic to Procedure: Yes Nausea / Vomiting: adequately controlled Pain: adequately controlled Airway Patency, RR, SpO2: stable & adequate BP & HR: stable & adequate Hydration State: stable & adequate Neuraxial Anesthesia: was administered and sensory block is resolving Anesthetic Complications: no major complications apparent and Pt Satisfied with anesthetic care
[2025-01-30] MEDS ORDERED: MAGNESIUM HYDROXIDE SUSP 30 ML UDC PO PRN (10:19)
[2025-01-30] MEDS ORDERED: HYDROmorphone INJ 0.5 MG/0.5 ML SYR IV PRN (10:19)
[2025-01-30] MEDS ORDERED: NALOXONE HCL 0.4 MG/1 ML VIAL/CARP IV PRN (10:19)
[2025-01-30] MEDS ORDERED: ALUMINUM/MAGNESIUM SUSP 30 ML UDC PO PRN (10:19)
[2025-01-30] MEDS ORDERED: POLYETHYLENE (MIRALAX) 17 GM PACK PO PRN (10:19)
[2025-01-30] MEDS ORDERED: METOCLOPRAMIDE HCL INJ 5 MG/ML 2 ML VIAL IV PRN (10:19)
[2025-01-30] MEDS ORDERED: CLOBETASOL PROPIONATE 0.05% CREAM 15 GM TUBE EXT PRN (10:36)
[2025-01-30] MEDS ORDERED: ARTIFICIAL TEARS OP PRN (10:38)
[2025-01-30] MEDS: SODIUM CHLORIDE 0.9% 1,000 ML IV SCH (10:50)
[2025-01-30] MEDS: MULTIVITAMIN TAB PO SCH (11:35)
[2025-01-30] MEDS: MAGNESIUM OXIDE 400 MG TAB PO SCH (11:35)
[2025-01-30] MEDS: LEVOTHYROXINE SODIUM 75 MCG TABLET PO SCH (11:35)
[2025-01-30] MEDS: CHOLECALCIFEROL 125 MCG (5,000 UNITS) TAB PO SCH (11:35)
[2025-01-30] MEDS: ASPIRIN 81 MG ECTAB PO SCH (11:35)
[2025-01-30] MEDS: DOCUSATE SODIUM 100 MG CAP PO SCH (11:36)
[2025-01-30] MEDS: SENNA 8.6 MG TAB PO SCH (11:36)
[2025-01-30] MEDS: KETOROLAC TROMETHAMINE 15 MG/ML VIAL IV SCH (11:39)
[2025-01-30] MEDS: TRANEXAMIC ACID / 0.7% NACL 1,000 MG/100 ML BAG IV SCH (14:51)
[2025-01-30] MEDS: ASCORBIC ACID 500 MG TAB PO SCH (18:14)
[2025-01-30] MEDS ORDERED: SENNA 8.6 MG TAB PO SCH (21:00)
[2025-01-31 06:07] LABS: Hematocrit (blood only) 36.8 % (37.0-47.0); Hemoglobin 12.5 g/dl (12.0-16.0); Immature Granulocytes # (auto) 0.05 K/uL (0.01-0.20); Immature Granulocytes % (auto) 0.5 %; Mean Corpuscular Hemoglobin 33.1 pg (25.0-34.0); Mean Corpuscular Volume 97.4 fL (80.0-100.0); Platelet Count 168 K/uL (130-400); RDW Standard Deviation 46.2 fL (36.4-46.3); Red Blood Count 3.78 M/uL (4.20-5.40); White Blood Count 11.00 K/ul (4.8-10.8)
[2025-01-31 06:24] LABS: Anion Gap 6.0 (3-11); Blood Urea Nitrogen 25.0 mg/dl (6-23); Calcium 9.0 mg/dl (8.6-10.3); Carbon Dioxide 24.0 mmol/L (21-32); Chloride 108.0 mmol/L (98-107); Creatinine Clr Calc Pharmacy 50.8 ml/min; Glucose 109.0 mg/dl (70-99(Fasting)); Potassium 4.1 mmol/L (3.5-5.1); Sodium 138.0 mmol/L (136-145)
[2025-01-31] MEDS: dexAMETHasone 10 MG in SYRINGE 0 ML IV SCH (08:12)
[2025-01-31] MEDS: CYANOCOBALAMIN (B-12) 500 MCG TABLET PO SCH (10:48)
--- NOTE | 2025-01-31 11:36 | Orthopedic Progress Note ---
Date of Service January 31, 2025 Assessment & Plan (1) Status post left hip replacement: Plan: 84-year-old female postop day 1 from a left uncemented hip replacement. Orthopedically she is doing pretty well. Pains controlled. Dislocated. She is neurologically intact. Plan: 1. DVT prophylaxis including thigh-high teds, SCDs, aspirin twice a day. 2. PT/OT. Weight-bear as taught. Left total hip protocol. 3. Pain control. Doing pretty well with current pain regimen. 4. Disposition. She is going to need a rehab or [facility] facility stay. I do not think she is going to be able to go home with her level of care at home. Think she is going to need a week or 2 of the rehab. Will start looking into that. janitorial services supervisor on board. (2) Spinal stenosis: (3) History of bilateral knee replacement: (4) Thyroid disease: Admission and Anticipated Discharge Date Admission Date: January 30, 2025 Subjective 84-year-old female postop day 1 from a left uncemented total hip arthroplasty. She is doing pretty well. Not have any pain at all while resting. She has been up and out of bed to a chair 1 time. No chest pain or shortness of breath. Not feeling dizzy or lightheaded. Physical Exam Physical Exam: Physical examination was a pleasant elderly female. She is lying in bed looks pretty comfortable. Examination of the left hip reveals the a Prevena VAC dressing in place. Leg lengths are equal. Her thigh is soft and supple. She can dorsiflex and plantarflex her foot appropriately. She is neurologically intact. Respiratory: normal respiratory effort, lungs clear to auscultation Cardiovascular: RRR, no murmur, no edema Gastrointestinal (Abdomen): normal bowel sounds, soft, nontender, no hepatosplenomegaly Results & Data Vital Signs (Past 12 Hours) Vital Signs Temp Pulse Resp BP Pulse Ox O2 Del Method 01/31/25 07:13 36.6 C 62 16 151/88 H 97 Room Air 01/31/25 03:35 36.6 C 59 L 18 159/70 H 96 Room Air 01/31/25 00:05 36.9 C 61 18 174/79 H 97 Room Air Laboratory Results Hemoglobin is 12.5. Hematocrit is 36.8. Electrolytes are stable.
== END 2025-01-31 16:44 | DRG 470 ==
LOC: ASU 05:11 → 3E 08:41